=== PATIENT | female | born 1955 | race American Indian/Alaskan Native ===

== ENCOUNTER 2021-05-21 17:01 | Emergency (ER) | payer MEDICARE, OTHER ==
[2021-05-21] MEDS ORDERED: HYDROGEN PEROXIDE 118 ML SOLUTION TP STA (18:14)
[2021-05-21] MEDS ORDERED: IBUPROFEN 800 MG TAB PO STA (18:23)
[2021-05-21] MEDS ORDERED: ACETAMINOPHEN 500 MG TAB PO STA (18:23)
[2021-05-21] MEDS ORDERED: TETANUS,DIPH,PERTUSS(ACELL) VACCINE 0.5 ML SYRINGE IM ONE (18:35)
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
[2021-05-21 20:10] VITALS: BP 151/85
== END 2021-05-21 20:10 | disposition home or self-care (01) ==
LOC: ED 17:01
DX: S01.312A Laceration without foreign body of left ear, initial encounter (principal); S40.022A Contusion of left upper arm, initial encounter; M54.2 Cervicalgia; I10 Essential (primary) hypertension; Z98.890 Other specified postprocedural states; Z79.899 Other long term (current) drug therapy; V49.49XA Driver injured in collision with other motor vehicles in traffic accident, initial encounter; W22.10XA Striking against or struck by unspecified automobile airbag, initial encounter; Y93.89 Activity, other specified; Y92.410 Unspecified street and highway as the place of occurrence of the external cause; Y99.8 Other external cause status
CPT/HCPCS: 90471; 90715